=== PATIENT | male | born 1960 | race Caucasian/White ===

== ENCOUNTER 2019-02-13 10:36 | Emergency (ER) | payer BC ==
[~2019-02-13] VITALS: Ht 185.4 cm; Wt 86.4 kg
[~2019-02-13 10:36] MED LIST: ALBU18HF INHALATION; AMLO-147 PO; ATOR40TA68 PO; AZIT250T PO; ENAL20TA73 PO; GABA-528 PO; HYDR12.58 PO; TERA2CAP3 PO
[2019-02-13 10:42] VITALS: Ht 185.4 cm; Wt 86.4 kg
[2019-02-13 12:32] VITALS: BP 169/92; PULSE 80; RESP 20
== END 2019-02-13 12:32 | disposition home or self-care (01) ==
LOC: E/R 10:36
DX: J40 Bronchitis, not specified as acute or chronic (principal); I10 Essential (primary) hypertension; E11.9 Type 2 diabetes mellitus without complications
CPT/HCPCS: 36415; 71045; 80048; 83605; 85025; 87040; Z7502